=== PATIENT | male | born 1995 | race Caucasian/White ===

== ENCOUNTER 2019-01-08 18:45 | Emergency (ER) | payer MEDICAID, SELFPAY ==
[2019-01-08 18:58] VITALS: BP 125/74; PULSE 76; RESP 16; TEMP 37.5; O2SAT 98
--- NOTE | 2019-01-08 19:05 | ED.GENADUL_ITS ---
Discharge Plan Disposition Patient Disposition: HOME Condition: Stable Discharge Details Chief Complaint: RashLesion Clinical Impression: Bee sting Primary Care Provider: Elba Overton ED Provider: Jemal Bourgeois Home Meds and New Rx's Prescriptions: New prednisone 20 mg tablet 60 mg PO DAILY 5 Days Qty: 15 RF: 0 Discharge Instructions Instructions: Insect Bite or Sting (ED) Additional Instructions: continue to take benadryl as needed for itching if still swollen in a week see your primary care provider if you have severe pain, difficulty breathing, severe abdominal pain or nausea/vomit reutrn to the emergency department Medical Decision Making patient states he was stung in left anterior ankle yesterday and has had increased swelling tonight. No rashes , respiratory or gi symptoms to suggest anaphylaxis and appears well sytemically. Has mild swelling of the left distal leg without redness or erythema, no findings to suggest infectious etiology, suspect localized swelling from bee sting. Has used benadryl, will start steroids and advised f/u with pcp and return precautions given Differential Diagnosis localized reaction, bee sting HPI General Mode of arrival: ambulatory . Date/Time Provider Initiated Documentation: 01/08/19 18:53 . Limitations to Documentation: no limitations . Information obtained by: patient . History of Present Illness 23 year old M presents to the emergency department with the chief complaint of left ankle bee sting, described as moderate, Patient started experiencing this day(s) (1) and it has been constant. No relieving factors improve symptom(s), No exacerbating factors reported . Patient notes no other symptoms.. Related Data Home Medications Medication Instructions Recorded Confirmed prednisone 60 mg PO DAILY 5 Days #15 tab 01/08/19 Previous Rx's Medication Instructions Recorded prednisone 60 mg PO DAILY 5 Days #15 tab 01/08/19 Allergies Allergy/AdvReac Type Severity Reaction Status Date / Time No Known Allergies Allergy Unverified 01/08/19 19:02 General Stated Complaint: RashLesion SANDRA: 4 Review of Systems Review of Systems All systems reviewed & are unremarkable except as noted in HPI and below Constitutional Denies chills, Denies fever(s) and Denies weakness Cardiovascular Denies chest pain and Denies dyspnea Respiratory Denies cough and Denies dyspnea Gastrointestinal Denies abdominal pain, Denies nausea and Denies vomiting Neurologic Denies weakness Exam Const General: no acute distress Orientation: alert HENMT Head: normal to inspection Ears: external ears normal General nose exam: external nose normal Mouth: moist mucous membranes Eyes General: appearance normal, both eyes and all related structures Neck Neck: normal visual inspection Resp Effort & Inspection: normal respiratory effort and able to speak in complete sentences Cardio Rate: regular rate Skin General skin exam: no rashes or lesions noted Neuro General: alert and oriented x3 Extrem General: full ROM and normal capillary refill Psych Mental Status: mental status grossly normal Course Vital Signs Temperature 37.5 C 01/08/19 18:58 Pulse 76 01/08/19 18:58 Respiratory Rate 16 01/08/19 18:58 Blood Pressure 125/74 01/08/19 18:58 Pulse Oximetry 98 01/08/19 18:58 Temperature 37.5 C 01/08/19 18:58 Pulse 76 01/08/19 18:58 Respiratory Rate 16 01/08/19 18:58 Blood Pressure 125/74 01/08/19 18:58 Pulse Oximetry 98 01/08/19 18:58 Oxygen Delivery Method Room Air 01/08/19 18:58 Oxygen Flow Rate 0 01/08/19 18:58 Pain Level 2 01/08/19 18:58
[2019-01-08] MEDS: predniSONE 20 MG TAB 60 MG PO (19:15)
== END 2019-01-08 19:20 | disposition home or self-care (01) ==
PROVIDERS: Emergency Provider Emergency Medicine; PCP Family Medicine
DX: T63.441A Toxic effect of venom of bees, accidental (unintentional), initial encounter (principal); R50.9 Fever, unspecified; R21 Rash and other nonspecific skin eruption; R60.0 Localized edema
CPT/HCPCS: 99283; J7512